=== PATIENT | female | born 1955 | race African-American/Black ===

== ENCOUNTER 2016-07-13 05:36 | Day surgery (SDC) | payer BC ==
[~2016-07-13] VITALS: Ht 170.2 cm; Wt 74.8 kg
[2016-07-13] VITALS (10 sets, daily range): BP systolic 97–132; BP diastolic 52–74
[2016-07-13] MEDS ORDERED: LORATADINE10 M1 PO (06:19)
[2016-07-13] MEDS ORDERED: LOSARTAN POTAS100 MG ORAL (06:19)
[2016-07-13] MEDS ORDERED: HYDROCHLOROTHIA25 MG ORAL (06:19)
[2016-07-13] MEDS ORDERED: NASALIDE NASAL (06:19)
[2016-07-13] MEDS ORDERED: Lidocaine 1% 10mg/ml/Epi 0.005mg/ml 30ml vial INJ ONE (06:27)
[2016-07-13] MEDS ORDERED: Isovue-M 300 15ml INJ ONE (06:27)
[2016-07-13] MEDS ORDERED: Ropivacaine 5mg/ml Vial 20ml INJ ONE (06:27)
[2016-07-13] MEDS ORDERED: Kenalog-40 1ml Vial ONE (06:27)
[2016-07-13] MEDS ORDERED: celeBREX 200mg Cap **SURGERY PATIENTS ONLY ORAL ONE ×2 (06:31→07:00)
[2016-07-13] MEDS ORDERED: LR 1000ml 1,000 ML IVLG SCH (06:38)
--- NOTE | 2016-07-13 06:38 | Anethesia Preoperative Eval ---
Anesthesia Pre-op PMH/ROS General Date of Evaluation: July 13, 2016 Anesthesiologist: Price ASA Score: ASA 2 Mallampati Score Class I : Soft palate, uvula, fauces, pillars visible Class II: Soft palate, uvula, fauces visible Class III: Soft palate, base of uvula visible Class IV: Only hard plate visible Mallampati Classification: Class II Surgeon: Kj Diagnosis: Right shoulder frozen Surgical Procedure: Right shoulder manipulation Anesthesia History: none Family History: no anesthesia problems Allergies: Coded Allergies: No Known Allergies (Unverified , 07/11/16) Medications: see eMAR Past Medical History Cardiovascular: Reports: HTN, Denies: CAD, [place], arrhythmia, other, valve dz Pulmonary: Denies: COPD, [place], asthma, other Gastrointestinal/Genitourinary: Reports: GERD, Denies: CRI, ESRD, other Neurologic/Psychiatric: Denies: CVA, TIA, dementia, depression/anxiety, other Endocrine: Denies: DM, hypothyroidism, other, steroids HEENT: Denies: [place] (L), [place] (R), cataract (L), cataract (R), glaucoma, other Hematology/Immune: Denies: DVT, anemia, bleeding disorder, other Musculoskeletal/Integumentary: Denies: DDD, DJD, OA, RA, edema, other PSxH Narrative: aleena palm Anesthesia Pre-op Phys. Exam Physician Exam Last Vital Signs Date Time Temp Pulse Resp B/P Pulse Ox O2 Delivery O2 Flow Rate FiO2 07/13/16 06:06 97.0 74 20 132/66 100 Room Air Constitutional: NAD Cardiovascular: RRR Respiratory: CTA Airway Exam Mallampati Score: Class II MO: full ROM: full Anesthesia Pre-op A/P Labs see chart Studies Pre-op Studies: EKG - sr Risk Assessment & Plan Assessment: ASA II Plan: MAC Status Change Before Surgery: No Pre-Antibiotics Drug: N/a RUBÉN BACON M.D. July 13, 2016 06:38
[2016-07-13] MEDS ORDERED: Lidocaine 1% Plain 30 ml INJ ONE (06:45)
[2016-07-13] MEDS ORDERED: LR 1000ml 1,000 ML IV SCH (06:45)
[2016-07-13] MEDS ORDERED: fentaNYL 100 mcg/2 mL IV PRN (06:45)
[2016-07-13] MEDS ORDERED: DiphenhydrAMINE 50mg/ml Inj IVP PRN (06:45)
[2016-07-13] MEDS ORDERED: Propofol 10mg/ml 20ml IV ONE (06:45)
[2016-07-13] MEDS ORDERED: Hydromorphone 0.5mg/0.5ml inj IVP PRN (06:45)
[2016-07-13] MEDS ORDERED: LR 1000ml ONE (06:45)
[2016-07-13] MEDS ORDERED: Midazolam 2mg/2ml Inj ONE (06:45)
--- NOTE | 2016-07-13 06:45 | Pre-Procedure Note/Attestation ---
Pre-Procedure Note/Attestation Complete Prior to Procedure Planned Procedure: right Procedure Narrative: Rt shoulder DEENA with injection Indications for Procedure Pre-Operative Diagnosis: Rt frozen shoulder Attestation I attest that I discussed the nature of the procedure; its benefits; risks and complications; and alternatives (and the risks and benefits of such alternatives ), prior to the procedure, with the patient (or the patient's legal support representative). I attest that, if there was a reasonable possibility of needing a blood transfusion, the patient (or the patient's legal support representative) was given the [facility] standardized written summary, pursuant to the Tejinder Chio Blood Safety Act ([place] Health and Safety Code # 1645, as amended). I attest that I re-evaluated the patient just prior to the surgery and that there has been no change in the patient's H&P, except as documented below: NONE YOKASTA KWONG July 13, 2016 06:45
[2016-07-13] MEDS ORDERED: ceFAZolin 1gm in D5W 55ml IVPB ONE (07:00)
[2016-07-13] MEDS ORDERED: oxyCONTIN 20mg tab ORAL ONE (07:00)
[2016-07-13] MEDS ORDERED: HYDROmorphone 1mg/ml Carpuject SUBQ PRN (07:15)
--- NOTE | 2016-07-13 07:39 | Brief Operative Note ---
Immediate Post Operative Note Operative Note Chief Complaint: rt shoulder pain Pre-op Diagnosis: rt frozen shoulder Procedure: rt shoulder susan with injection Post-op Diagnosis: same as pre-op Findings: consistent w/pre-op dx studies Surgeon: md alejandro Anesthesiologist: md darby Anesthesia: local, MAC Specimen: none Complications: none Condition: stable Estimated Blood Loss: none Drains: none Implant(s) used?: No VIKA POST July 13, 2016 07:39
--- NOTE | 2016-07-13 07:45 | Immediate Post-Op Evaluation ---
Immediate Post-Op Evalulation Immediate Post-Op Evalulation Procedure: Right shoulder manipulation Date of Evaluation: July 13, 2016 Time of Evaluation: 07:45 IV Fluids: 500 Blood Products: 0 Estimated Blood Loss: 0 Urinary Output: 0 Blood Pressure Systolic: 130 Blood Pressure Diastolic: 79 Pulse Rate: 86 Respiratory Rate: 17 O2 Sat by Pulse Oximetry: 99 Temperature (Fahrenheit): 98 Pain Score (1-10): 0 Nausea: No Vomiting: No Complications 0 Patient Status: awake, reacts, patent, none Hydration Status: adequate Drug: N/A RUBÉN BACON M.D. July 13, 2016 07:45
[2016-07-13] MEDS ORDERED: Norco 5mg/325mg tab ORAL PRN (09:00)
[2016-07-13] MEDS ORDERED: D5 1/2NS 1,000 ML IV SCH (09:00)
[2016-07-13] MEDS ORDERED: Tylenol #3 tab (300mg/30mg) ORAL PRN (09:00)
--- NOTE | 2016-07-13 11:16 | Diagnostic Imaging Report ---
Indications: Right shoulder pain, intra-articular steroid injection Technique: Above procedure including fluoroscopy performed by Dr. Matthews. Portable intraoperative spot film images of the right shoulder performed in AP projection. Findings: Comparison: None Neural tip overlies the right glenohumeral joint. Injected contrast opacifies the glenohumeral joint space and subcoracoid recess with rupture and extravasation of contrast into the adjacent medial soft tissues. IMPRESSION: Intraprocedural changes as described
--- NOTE | 2016-07-13 11:50 | 48 Hour Post Anesthesia Eval ---
Post Anesthesia Evaluation Procedure: Right shoulder manipulation Date of Evaluation: July 13, 2016 Time of Evaluation: 10:00 Blood Pressure Systolic: 120 0: 66 Pulse Rate: 78 Respiratory Rate: 20 Temperature (Fahrenheit): 97.4 O2 Sat by Pulse Oximetry: 99 Airway: patent Nausea: No Vomiting: No Pain Intensity: 1 Hydration Status: adequate Cardiopulmonary Status: at baseline Mental Status/LOC: patient returned to baseline Post-Anesthesia Complications: 0 Follow-up care needed: ready to discharge RUBÉN BACON M.D. July 13, 2016 11:50
--- NOTE | 2016-07-13 17:11 | Operative Note - Dictated ---
DATE OF OPERATION: 07/13/2016 PREOPERATIVE DIAGNOSIS: Right shoulder adhesive capsulitis, nonresponsive to conservative treatment. POSTOPERATIVE DIAGNOSIS: Right shoulder adhesive capsulitis, nonresponsive to conservative treatment. PROCEDURES: 1. Right shoulder manipulation under anesthesia. 2. Right shoulder arthrogram. 3. Right shoulder injection of 8 mL of Marcaine and 2 mL of Kenalog 40 mg/mL. 4. Use of image intensifier by surgeon. SURGEON: Star Underwood M.D. PILE DRIVING SETTER: Kiah York PA-C. ANESTHESIOLOGIST: Dr. Strange. ANESTHESIA: Gentle mask anesthesia. EBL: Less than 5 mL. COMPLICATIONS: None. BRIEF HISTORY: The patient is a pleasant 60-year-old female, who has had ongoing decreased range of motion and stiffness. She was diagnosed with adhesive capsulitis. After full discussion of risks and benefits of surgery and complications associated with it including infection, bleeding, neurovascular complication, possibility of stiffness, possibility of continued pain, stiffness, decreased range of motion, and fracture, she opted for surgical treatment as described above. OPERATIVE PROCEDURE: The patient was brought to the operating room table and was placed supine. All pressure points were well padded. General MAC anesthesia was induced. The right shoulder was then gently manipulated. The shoulder was placed into full flexion, abduction, external rotation, internal rotation, and adduction, and gentle crackling could be heard as the capsule was released. No loud pop was heard to indicate any fractures. Once this was completed, the shoulder had very good range of motion. At this point, the anterior portion of the shoulder was prepped and draped in the usual sterile fashion. The image intensifier was brought in and glenohumeral joint was then identified. An 18-gauge spinal needle was placed inside the glenohumeral joint. The position was checked by performing arthrogram of the shoulder. A 5 mL of Isovue was injected. Intra-articular position of needle was checked and confirmed. There was no evidence of rotator cuff tear. At this point, 6 mL of Marcaine and Kenalog 40 mg/mL was injected inside the shoulder without complication. The patient tolerated the procedure very well. The needle was removed and Band-Aid was applied. The patient tolerated the procedure well without any complication and was taken to recovery room in stable condition. Star Jason Underwood DR: LIBORIO JOB#: [id number] CC:
== END 2016-07-13 10:40 | disposition home or self-care (01) ==
LOC: SUR 05:36
DX: M75.01 Adhesive capsulitis of right shoulder (principal); I10 Essential (primary) hypertension; R73.03 Prediabetes; K21.9 Gastro-esophageal reflux disease without esophagitis; Z90.49 Acquired absence of other specified parts of digestive tract
CPT/HCPCS: 23700; 73020; J2001; J2250; J2704; J2795; J3010; J3301; J7120; Q9967; 94003; 94150